=== PATIENT | female | born 1985 | race Caucasian/White ===

== ENCOUNTER → 2018-10-02 | Outpatient (CLI) | payer OTHER ==
[~2018-10-02] MED LIST: IBUP800 PO
== END | disposition home or self-care (01) ==
LOC: LAB EV 15:30 → LAB SHORT 15:30
DX: R82.90 Unspecified abnormal findings in urine (principal)
CPT/HCPCS: 87086

== ENCOUNTER 2020-04-02 19:12 | Emergency (ER) | payer OTHER ==
[~2020-04-02] VITALS: Ht 170.2 cm; Wt 92.1 kg
[2020-04-02 19:37] LABS: BASOPHILS ABSOLUTE AUTO 0.07 K/mm3 (0.00-0.23); BASOPHILS PERCENT AUTO 1 % (0-2); EOSINOPHILS ABSOLUTE AUTO 0.03 K/mm3 (0.00-0.68); EOSINOPHILS PERCENT AUTO 0 % (0-6); Hematocrit 38.3 % (33.0-51.0); Hemoglobin 13.2 g/dL (11.5-16.0); IMMATURE GRAN ABSOLUTE AUTO 0.04 K/mm3 (0.00-0.10); IMMATURE GRAN PERCENT AUTO 0 % (0-1); LYMPHOCYTES PERCENT AUTO 21 % (21-46); MONOCYTES ABSOLUTE AUTO 0.68 K/mm3 (0.16-1.47); MONOCYTES PERCENT AUTO 6 % (4-13); Mean Corpuscular HGB Conc 34.5 g/dL (31.5-36.5); Mean Corpuscular Volume 84 fL (80-100); Mean Platelet Volume 9.5 fL (9.1-12.4); NEUTROPHILS PERCENT AUTO 72 % (41-73); Platelet Count 347 K/mm3 (150-400); RDW Coefficient Variation 11.6 % (11.7-14.2); RDW Standard Deviation 35.5 fL (35.1-46.3); Red Blood Cell Count 4.55 M/mm3 (3.80-5.20); White Blood Cell Count 11.32 K/mm3 (4.00-11.30)
[2020-04-02 20:04] LABS: Alanine Aminotransfer (ALT/SGP 122 U/L (12-78); Albumin, Blood 4.3 g/dL (3.4-5.0); Albumin/Globulin Ratio 1.1 (0.8-1.8); Alk Phos 75 U/L (50-136); Anion Gap 7 mmol/L (6-16); Aspartate Aminotrans (AST/SGOT 54 U/L (12-37); Bilirubin, Total 0.5 mg/dL (0.1-1.0); Blood Urea Nitrogen 25 mg/dL (8-24); Bun/Creatinine Ratio 36.1 (12.0-20.0); CO2, Blood 24 mmol/L (21-32); Calcium, Blood 9.7 mg/dL (8.5-10.1); Chloride, Blood 109 mmol/L (98-108); Creatinine, Blood 0.69 mg/dL (0.40-1.00); Free Thyroxine 1.56 ng/dL (0.70-1.60); Globulin, Blood 3.9 g/dL (2.2-4.0); Glomerular Filtration Rate >60 (60-); Glucose, Blood 142 mg/dL (70-99); Potassium, Blood 3.9 mmol/L (3.5-5.5); Sodium, Blood 140 mmol/L (136-145); Total Protein, Blood 8.2 g/dL (6.4-8.2)
[2020-04-02 20:07] LABS: Thyroid Stimulating Hormone <0.005 uIU/mL (0.360-4.800)
== END 2020-04-02 21:58 | disposition home or self-care (01) ==
LOC: ER 19:12
PROVIDERS: Physician Assistant
DX: E86.0 Dehydration (principal); R00.0 Tachycardia, unspecified
CPT/HCPCS: 36415; 80053; 84439; 84443; 85025; 93005; 93010; 96360; 99284-25; J7030

== ENCOUNTER → 2021-03-06 | Outpatient (CLI) | payer OTHER | LOC: LAB SHORT 17:54 → LAB 17:54 | DX: N39.0 Urinary tract infection, site not specified (principal) | CPT/HCPCS: 87086 ==

== ENCOUNTER → 2021-03-20 | Outpatient (CLI) | payer OTHER | LOC: LAB 15:52 → LAB SHORT 15:52 | DX: N39.0 Urinary tract infection, site not specified (principal) | CPT/HCPCS: 87086; 87147 ==

== ENCOUNTER → 2022-04-16 | Outpatient (CLI) | payer OTHER ==
[2022-05-01 21:07] LABS: BRUSHITE 0.68 ratio (0.00-3.00); CALCIUM OXALATE 1.08 ratio (0.00-6.00); CALCIUM, URINE 3.9 mg/dL (Not Estab.); CALCIUM, URINE 93.6 mg/24 hr (0.0-320.0); CHLORIDE URINE 58 (38-210); CITRIC ACID (CITRATE) 122 mg/L (Not Estab.); CITRIC ACID(CITRATE) 293 mg/24 hr (320-1240); CREATININE, URINE 32.2 mg/dL (Not Estab.); CREATININE, URINE 772.8 mg/24 hr (800.0-1800.0); MAGNESIUM, URINE <1.4 mg/dL (Not Estab.); MONOSODIUM URATE 0.58 ratio (0.00-4.00); OSMOLALITY, URINE 147 (300-900); SODIUM, URINE 32 mmol/L (Not Estab.); SODIUM, URINE 77 (39-258); STRUVITE 0.02 ratio (0.00-1.00); URIC ACID 0.11 ratio (0.00-1.20); URINE VOLUME 2400 mL/24 hr (600-1600); URINE VOLUME (PRESERVATIVE) 2400 mL/24 hr (600-1600)
== END | disposition home or self-care (01) ==
LOC: LAB SHORT 11:05 → LAB 11:05
PROVIDERS: Internal Medicine Nephrology
DX: Q61.5 Medullary cystic kidney (principal); N20.0 Calculus of kidney
CPT/HCPCS: 81003; 81050; 82131; 82140; 82340; 82436; 82507; 82570; 83735; 83935; 83945; 84105; 84133; 84300; 84392; 84560

== ENCOUNTER → 2025-05-17 | Outpatient (CLI) | payer OTHER ==
[2025-05-17 14:14] LABS: BASOPHILS ABSOLUTE AUTO 0.09 K/mm3 (0.00-0.23); BASOPHILS PERCENT AUTO 1 % (0-2); EOSINOPHILS ABSOLUTE AUTO 0.09 K/mm3 (0.00-0.68); EOSINOPHILS PERCENT AUTO 1 % (0-6); Hematocrit 40.1 % (33.0-51.0); Hemoglobin 13.5 g/dL (11.5-16.0); IMMATURE GRAN ABSOLUTE AUTO 0.01 K/mm3 (0.00-0.10); IMMATURE GRAN PERCENT AUTO 0 % (0-1); LYMPHOCYTES ABSOLUTE AUTO 2.35 K/mm3 (0.84-5.20); LYMPHOCYTES PERCENT AUTO 37 % (21-46); MONOCYTES ABSOLUTE AUTO 0.46 K/mm3 (0.16-1.47); MONOCYTES PERCENT AUTO 7 % (4-13); Mean Corpuscular HGB Conc 33.7 g/dL (31.5-36.5); Mean Corpuscular Volume 86 fL (80-100); NEUTROPHILS ABSOLUTE AUTO 3.29 K/mm3 (1.96-9.15); NEUTROPHILS PERCENT AUTO 52 % (41-73); NRBC ABSOLUTE 0.00 K/mm3 (0.00-0.02); NRBC Auto 0.0 /100 WBC (0.0-0.2); Platelet Count 408 K/mm3 (150-400); RDW Coefficient Variation 12.2 % (11.7-14.2); RDW Standard Deviation 37.9 fL (35.1-46.3)
[2025-05-17 14:44] LABS: Alanine Aminotransfer (ALT/SGP 81.0 U/L (12-78); Albumin, Blood 4.5 g/dL (3.4-5.0); Albumin/Globulin Ratio 1.1 (0.8-1.8); Anion Gap 12.0 mmol/L (3-11); Aspartate Aminotrans (AST/SGOT 39.0 U/L (12-37); Bilirubin, Total 0.6 mg/dL (0.1-1.0); Blood Urea Nitrogen 16.0 mg/dL (8-24); CO2, Blood 28.0 mmol/L (21-32); Calcium, Blood 9.4 mg/dL (8.5-10.1); Chloride, Blood 104.0 mmol/L (98-108); Creatinine, Blood 0.84 mg/dL (0.40-1.00); Globulin, Blood 4.0 g/dL (2.2-4.0); Glucose, Blood 98.0 mg/dL (70-99); Magnesium, Blood 2.1 mg/dL (1.6-2.4); Potassium, Blood 4.1 mmol/L (3.5-5.5); Sodium, Blood 140.0 mmol/L (136-145); Thyroid Stimulating Hormone 2.786 uIU/mL (0.360-4.800); Total Protein, Blood 8.5 g/dL (6.4-8.2)
== END ==
LOC: LAB SHORT 14:10 → LAB 14:10
PROVIDERS: Physician Assistant
DX: R42 Dizziness and giddiness (principal); R82.998 Other abnormal findings in urine
CPT/HCPCS: 80053; 83735; 84443; 85025; 87086